=== PATIENT | male | born 1940 | race Caucasian/White ===

== ENCOUNTER 2017-02-28 14:11 | Outpatient (RCR) | payer MEDICARE ==
--- OUTSIDE RECORDS SUMMARY | 2016-12-07 10:28 | XMS REPORT | Continuity of Care Document ---
Author Author [facility] Organization [facility] Address Unknown Phone Unavailable Allergies Active Description Code Type Severity Reaction Onset Reported/Identified Relationship to Patient Clinical Status Yes No Known Allergies No Known Allergies Drug Allergy Unknown N/A 01/02/2013 Yes adhesive adhesive Drug Allergy Moderate RASH 09/04/2014 Yes adhesive adhesive Drug Allergy Moderate RASH, blister 01/06/2015 Yes codeine codeine Drug Allergy Mild bad trembles 01/06/2015 Medications Problems Procedures Code Description Performed By Performed On [facility] Jose F Jenkins MD 09/06/2014 14.9 OTHER POST SEGMENT OPS Jose F Jenkins MD 09/06/2014 Results Test Result Range HEMOGLOBIN - 09/06/14 13:36 MEAN CELL VOLUME 93.2 fl 80.0-100.0 HEMOGLOBIN 15.4 gm/dL 14.0-18.0 METABOLIC PANEL, BASIC - 09/06/14 13:36 POTASSIUM 4.7 mmol/L 3.5-5.3 EST GFR (MDRD) > 60 mL/min > 59 ANION GAP 9 mmol/L 5-15 EST CrCl (CG) > 60 mL/min > 59 GLUCOSE 138 mg/dL 70-99 CALCIUM 9.7 mg/dL 8.5-10.1 BLOOD UREA NITROGEN 25 mg/dL 7-20 CREATININE 0.9 mg/dL 0.8-1.3 SODIUM 136 mmol/L 135-148 CHLORIDE 101 mmol/L 98-110 CARBON DIOXIDE 26 mmol/L 21-32 MRSA SURVEILLANCE SCREEN - 09/06/14 13:36 Microbiology Encounters ACCT No. Visit Date/Time Discharge Status Pt. Type Provider Facility Loc./Unit Complaint [id number] 09/06/2014 12:57:00 2013 18:00:00 DIS Outpatient Gregory HIDALGO, Jose F Lorenzo [facility] W.OPRA [id number] 10/30/2016 16:46:00 Outpatient Cristy HIDALGO, Regan Wilson [facility] W.NM
== END 2017-03-07 | disposition home or self-care (01) ==
LOC: ONC 14:11
PROVIDERS: ATTEND Radiology Radiation Oncology
DX: Z51.0 Encounter for antineoplastic radiation therapy (principal); C61 Malignant neoplasm of prostate
CPT/HCPCS: 77300; 77301; 77307; 77334; 77336; 77338; 77385; 99214

== ENCOUNTER 2017-04-09 16:03 | Outpatient (RCR) | payer MEDICARE | END 2017-06-29 | disposition home or self-care (01) | LOC: ONC 16:03 | PROVIDERS: ATTEND Radiology Radiation Oncology | DX: C61 Malignant neoplasm of prostate (principal) | CPT/HCPCS: 36415; 84153; 99213 ==